=== PATIENT | male | born 1995 ===

== ENCOUNTER 2024-07-30 13:44 | Emergency (ER) | payer MEDICAID, SELFPAY ==
--- NOTE | ~2024-07-30 | XR_ITS ---
EXAMINATION: XR KNEE, LEFT CLINICAL INFORMATION: pain COMPARISON: None available. TECHNIQUE: AP, lateral, bilateral oblique views of the left knee. FINDINGS: There is no joint effusion. Joint spaces are preserved. There are no osteophytes. No fracture is seen. XR/XR knee LT 3V IMPRESSION: Unremarkable left knee Electronically signed by: Reg Carrillo MD 07/30/2024 02:41 PM EDT
[2024-07-30 13:54] VITALS: BP 119/60; PULSE 76; RESP 18; TEMP 36.3; O2SAT 97; BMI 32.1
--- NOTE | 2024-07-30 14:11 | ED_ITS ---
HPI - Extremity Injury (Lower) General Chief Complaint: Extremity Injury, Lower Stated Complaint: L Knee Pain No Injury Time Seen by Provider: 07/30/24 19:20 Source: patient, RN notes reviewed and old records reviewed Mode of arrival: ambulatory Limitations: no limitations History of Present Illness ED Provider: Phyllis ANDRADE Narrative: 29-year-old male presents for evaluation of left knee pain. Patient reports he woke up with left knee pain 5 or 6 days ago. He denies any injury. He reports that he does lift heavy but has not been in the gym for over a month. He reports that he was camping recently with his friend in the [place]. He denies any known tick bites or rashes. His pain is worse with walking. He reports that he feels a clicking sensation when he is walking. No calf pain or ankle or foot pain. Related Data Allergies Allergy/AdvReac Type Severity Reaction Status Date / Time No Known Allergies Allergy Verified 07/30/24 13:57 Review of Systems Constitutional: Constitutional: Denies body ache(s), Denies chills and Denies frequent falls Eyes: Eyes: Denies blurry vision ENT: Denies dizziness Cardiovascular: Cardiovascular: Denies chest pain and Denies dyspnea on exertion Respiratory: Respiratory: Denies cough and Denies dyspnea on exertion Gastrointestinal: Gastrointestinal: Denies abdominal pain Musculoskeletal: Musculoskeletal: Reports arthralgias, Denies joint swelling and Denies limited range of motion Integumentary/Breasts: Skin/Breast: Denies rash Neurologic: Denies dizziness and Denies frequent falls PMFSH Social History Social History Advance Directives: No Advance Directives Information Provided: Yes Physical Exam Vital Signs: Vital Signs: Last Vital Signs Temp 98.2 F 07/30/24 19:59 Pulse 70 07/30/24 19:59 Resp 18 07/30/24 19:59 BP 133/76 07/30/24 19:59 Pulse Ox 100 07/30/24 19:59 O2 Del Method Room Air 07/30/24 19:59 BMI result Body Mass Index 32.1 Const: General: healthy appearing, comfortable, no acute distress, alert and awake Nutritional Appearance: well nourished Orientation/consciousness: patient oriented x3 HEENT: Head: Yes normocephalic and Yes atraumatic Throat: Yes posterior oropharynx normal Eyes: Eyelids: Yes eyelids normal Conjunctivae: conjunctivae normal Sclerae: sclerae normal Corneas: corneas normal Pupils: Equal, round and reactive pupils present EOM: EOMs intact bilaterally Neck: Neck: Yes full ROM Resp: Effort & Inspection: normal respiratory effort, able to speak in complete sentences and not labored Skin: General skin exam: elasticity normal Neuro: General: patient oriented x3 Cranial nerves: Yes Equal, round and reactive pupils present and Yes Bilaterally intact EOM present Cognition (Neuro): normal cognition Extrem: Other: There was no obvious deformity to the left knee. No significant edema, no ecchymosis. The patient has global tenderness, but mostly around the medial aspect of the left knee. No laxity with anterior drawer testing. He has full range of motion with flexion-extension. There was no calf edema or calf tenderness. Course Course Course Narrative: This is an RME: Additional HPI, ROS, PE not included below will be deferred to primary provider. RME assessment and note performed by: Mariia Wild PA-C This is a 29-year-old male who presents emergency department with complaints of nontraumatic left knee pain. Patient with tenderness palpation diffusely, no obvious bony deformity or swelling. Vital signs within normal limits. Plan: X-rays, further ER evaluation needed Medical Decision Making Medical Decision Making MDM Narrative: [age] old male presents for evaluation of atraumatic left knee pain. There is no obvious deformity or significant injury, x-ray is negative for fracture, no joint effusion. There is no evidence to suggest DVT. I did add on a Lyme test as the patient reports he was recently camping but he did not notice any tick bite, does not have any fevers, chills and there has been no rash or erythema migrans. The patient be discharged with symptomatic care and will be referred to Orthopedics Differential Diagnosis Differential Diagnoses: The differential diagnosis associated with the presentation includes Independent Interpretation I performed an independent interpretation of an: Plain X-Ray Interpretation: agree with Radiology interpretation Radiology Impression Discussion of test interpretation with radiology: I have reviewed the radiologist's reading. Radiologist Impression: FINDINGS: There is no joint effusion. Joint spaces are preserved. There are no osteophytes. No fracture is seen. XR/XR knee LT 3V IMPRESSION: Unremarkable left knee Electronically signed by: Reg Carrillo MD 07/30/2024 02:41 PM EDT RP Discharge Plan Discharge Clinical Impression: Arthralgia of knee, left Patient Disposition: Home, Self-Care Instructions: Arthralgia (ED) Additional Instructions: the x-ray of your left knee did not show any concerning abnormalities. It is possible that you have a cartilage or ligamentous injury. We also sent a test for Lyme disease and we will call you if it is positive follow-up with your primary doctor, return for new or worsening symptoms. You may also follow up with Orthopedics at the number provided. You may benefit from an outpatient MRI if your symptoms are not improving Referrals: [facility] Orthopedic Surgeons [Provider Group] Referral Note: left knee pain, negative x-ray Interventions: ED Discharge Assessment Last Done: 07/30/24 19:59 Discharge Date/Time: 07/30/24 20:00 Print Language: Unable To Collect
[2024-07-30 19:26] VITALS: BP 133/76; PULSE 70; RESP 18; TEMP 36.8; O2SAT 100
[2024-07-30 19:59] VITALS: BP 133/76; PULSE 70; RESP 18; TEMP 36.8; O2SAT 100
[2024-08-01 09:08] LABS: Lyme Abs Screen <0.90 index
[2024-08-02 02:44] LABS: Lyme Disease DNA PCR NOT DETECTED (NOT DETECTED)
== END 2024-07-30 20:00 | disposition home or self-care (01) ==
PROVIDERS: Physician Assistant; Emergency Provider Emergency Medicine
DX: M25.562 Pain in left knee (principal)
CPT/HCPCS: 36415; 73562; 86617; 86618; 99283

== ENCOUNTER → 2024-07-30 14:08 | Outpatient (BNV) | payer MEDICAID, SELFPAY | PROVIDERS: Visit Provider Radiology Diagnostic Radiology | DX: M25.562 Pain in left knee (principal) | CPT/HCPCS: 73562 ==

== ENCOUNTER 2024-10-19 08:37 | Outpatient (REF) | payer MEDICAID, SELFPAY ==
--- OUTSIDE RECORDS SUMMARY | 2024-10-22 09:53 | XMS_ITS | Clinical Summary ---
Author Organization [facility] Address [address] [place] [address] Care Team Providers Care Heliotherapist Name Role Phone Aram Thomason MD Primary Care Provider Source Comments PLEASE NOTE, if this patient is a minor, it may be UNLAWFUL to discuss sensitive information that is contained in these records (such as FAMILY PLANNING, MENTAL HEALTH or SUBSTANCE ABUSE) with the minor patient's parent or other person without the patient's specific authorization.[facility] Allergies No known active allergies Medications naloxone (NARCAN) 4 mg/actuation nasal spray See Instructions , 4 mg Once may repeat every 2 to 3 minutes until patient responds, # 2 each, 0 Refills, Soft Stop, 12/30/19 13:00:00 EST, [facility]/pharmacy #[id number], Partial fill upon patient request, 178, cm, 12/30/19 11:25:00 EST, Height, 107, kg, ... 12/30/2019 Active naproxen (NAPROSYN) 500 mg tablet Take 1 Tablet by mouth 2 (two) times daily as needed (back pain) 60 Tablet 04/06/2024 Active atorvastatin (LIPITOR) 40 mg tablet Take 1 Tablet by mouth nightly at bedtime 90 Tablet 3 04/08/2024 Active amoxicillin-pot clavulanate (AUGMENTIN) 875-125 mg per tabletIndication s:Encounter for dental examination Take 1 Tablet by mouth 2 (two) times daily 20 Tablet 05/08/2024 Active ibuprofen 800 mg tabletIndication s:Encounter for dental examination Take 1 Tablet by mouth 3 (three) times daily as needed for pain 28 Tablet 05/08/2024 Active methylPREDNISolo ne (MEDROL DOSPAK) 4 mg tablet packIndications: Acute pain of left knee UAD. 1 Packet 08/07/2024 Active Active Problems Problem Noted Date Diagnosed Date Hypercholesterolemia 04/08/2024 Opioid use disorder, severe, dependence (CMS & H HS-HCC) 04/28/2022 Overview (04/06/2024): History of multiple fentanyl overdoses Urge incontinence 05/15/2021 Left leg pain 05/15/2021 Panic disorder 11/21/2020 Restless legs syndrome 10/09/2018 Overview (03/06/2021): Unlikely diagnosis. Attributed to anxiety by neurologist. Gabapentin & ropinirole ineffective in the past. Positive PPD 04/30/2018 Resolved Problems Problem Noted Date Diagnosed Date Resolved Date Class 1 obesity due to exces s calories without serious comorbidity with body mass index (BMI) of 30.0 to 30.9 in adult 06/29/2018 Exudative pharyngitis 01/15/20182020 Overview (01/15/2018): 01/12/18: Was diagnosed with exudative pharyngitis at [facility] Encounters Date Type Department Care Team Description 10/15/2024 Interim Notes [address] [phone] Danyell Hernandez 09/11/2024 / TELEPHONE [address] [phone] Daniel Saeed Community Health Worker 08/24/2024 Results Follow-Up [address] [phone] Basilio Chowdary FNP 08/08/2024 Interim Notes [address] [phone] Melanie Murry 08/07/2024 4:20 PM EDT Office Visit [address] [phone] Basilio Chowdary FNP 08/03/2024 Interim Notes [address] [phone] Danyell Hernandez 08/03/2024 Interim Notes [facility] [address] [place] [address] Danyell Hernandez from Last 3 Months Immunizations Immunization Administration Dates Next Due HEP B, PED/ADOL (NESHCQA-E-OOEP/RECOMBIVAX-PEDS) 03/12/2009,04/25/2008,03/28/2008 HPV, QUADRIVALENT 09/28/2012,06/21/2012,11/02/19 12 Hep A, Ped/adol, 2 Dose 01/27/2009,05/30/2008 INFLUENZA, SEASONAL, INJECTABLE 11/02/2011,10/21,01/27/2009 INFLUENZA, SEASONAL, INJECTA BLE, PRESERVATIVE FREE 03/06/2013 IPV (IPOL) 03/12/2009, 9,04/25/2008,03/28 Influenza Virus Vaccine (FLU MIST), Live Intranasal 12/13/2013 MENINGOCOCCAL MCV4P (MENACTRA) 12/13/2013 MENINGOCOCCAL VACCINE,CONJUG ATE (NON-INTERFACE) 04/25/2008 MMR (MMR II/Priorix) 04/25/2008,03/28/2008 MODERNA COVID-19 VACCINE BIV ALENT, BLUE CAP, 6M+ 04/07/2022 PPD 06/20/2013,05/31/2012 TDAP 03/06/2018,07/04/2015,03/18/2008 Td (adult),2 Lf tetanus toxo id (TDVAX), preservative free 10/21/2010,03/12/2009,05/30/2008,04/25 Varicella (Varivax), Live Vaccine 03/28/2008 Family History Medical History Relation Name Comments Diabetes Mother High Cholesterol Mother Hypertension Mother Relation Name Status Comments Father Mother Alive Social History Tobacco Use Types Packs/Day Years Used Date Smoking Tobacco: Never Cigarettes Passive Smoke Exposure: Never Smokeless Tobacco: Never Tobacco Cessation:Counseling Given: Not Answered Comments:vapors Alcohol Use Standard Drinks/Week Comments Not Currently 0 (1 standard drink = 0.6 oz pur e alcohol) sometimes Social Connections Answer Date Recorded Connectedness 0 11/21/2020 Financial Resource Strain Answer Date R ecorded Financial Resource Strain 0 2020 Stress Answer Date Recorded Stress 0 11/21/2020 Physical Activity Answer Date Recorded Physical Activity 0 09/30/2018 Food Insecurity Answer Date Recorded Food 0 11/21/2020 Transportation Needs Answer Date Record ed Transportation 0 11/21/2020 Housing Stability Answer Date Recorded Housing 0 11/21/2020 Safety and Environment Answer Date Johnathan rded Safety 0 09/30/2018 Utilities Answer Date Recorded Utilities 0 11/21/2020 Employment Answer Date Recorded Employment 0 09/30/2018 Sex and Gender Information Value Date Recorded Sex Assigned at Male 12/22/2017 5:43 PM PST Legal Sex Male 11:36 AM PDT Gender Identity Male 12/22/2017 5:43 PM PST Sexual Orientation Straight 06/29/2018 12 :35 PM PDT Occupation Industry Job Start Date Job End Date Unemployed Not on file Not on file Not on file Last Filed Vital Signs Vital Sign Reading Time Taken Comments Blood Pressure 125/83 08/07/2024 4:30 PM EDT Pulse 70 08/07/2024 4:30 PM EDT Temperature 36.5 C (97.7 F) 08/07/2024 4:30 PM EDT Respiratory Rate 19 08/07/2024 4:30 PM EDT Oxygen Saturation 100% 03/06/2021 4:07 PM EST Inhaled Oxygen Concentration - - Weight 99.1 kg (218 lb 6.4 oz) 08/07/2024 4:30 P M EDT Height 175.3 cm (5' 9 ) 08/07/2024 4:30 PM EDT Body Mass Index 32.25 08/07/2024 4:30 PM EDT Plan of Treatment Health Maintenance Due Date Last Done Comments Imm-Pneumococcal (1 of 2 - PCV) 2013 Alcohol and Drug Screen 02/08/2024 05/16/19, 03/06/2021, 11/21/2020, Additional history exists [id number] ( season) 2024 04/07/2022, 10/30/2020, 10/02/2020 Imm-Influenza (#1) 2024 12/13/2013, 0 03/06/2013, 11/02/2011, Additional history exists Depression Monitoring 12/12/2024 09/11/2024 , 03/06/2021, 11/21/2020, Additional history exists Dental BW 02/22/2025 02/21/2024 Dental Examination 02/22/2025 02/21/2024 Dental Perio Charting 02/22/2025 02/21/2024 Dental Prophy 03/30/2025 03/28/2024 Annual Wellness (Adult): Indicated (All Coverage) 04/06/2025 04/06/2024, 12/01/2015, 04/11/2014, Additional history exists Lipid Screening 04/06/2025 04/06/2024, 01/14/2021 Hypertension Screening (#1) 08/07/2025 Tobacco Screening 08/07/2025 08/07/2024 Anxiety Screening 09/11/2025 09/11/2024 Diabetes Screening 08/02/2027 08/01/2024, 0 04/06/2024, 04/06/2024, Additional history exists Imm-DTaP/Tdap/Td (7 - Td or Tdap) 03/06/2028 03/06/2018, 07/04/2015, 10/21/2010, Additional history exists Dental FMX/Pano 02/22/2029 02/21/2024 Imm-Hepatitis B Discontinued 03/12/2009, 04/07, 03/28/2008 HIV Screening Completed 01/14/2021, 0707/2020, 01/09/2020, Additional history exists Hepatitis C Screening Completed 01/14/2021 Procedures Procedure Name Priority Date/Time Associated Diagnosis Comments MR KNEE WO Routine 08/11/2024 3:00 AM EDT Acute pain of left knee HGA1C W/EAG Routine 04/06/2024 4:50 PM EST Routine general medical examination at a health care facility LIPIDS W RFLX TO DIRECT LDL Routine 04/06/2024 4:50 PM EST Routine general medical examination at a health care facility PROPHYLAXIS - ADULT Routine 03/28/2024 3 :00 PM EST Prophylactic measure COMP PERIODONTAL EVALUATION - NEW/EST PATIENT Routine 02/21/2024 3:00 PM EST Dental caries on smooth surface penetrating into dentin Dental caries on smooth surface penetrating into pulp INTRAORAL - COMP SERIES OF RADIOGRAPHIC IMAGES Routine 02/21/2024 3:00 PM EST Dental caries on smooth surface penetrating into dentin Dental caries on smooth surface penetrating into pulp PERIODIC ORAL EVALUATION ESTABLISHED PATIENT Routine 02/21/2024 3:00 PM EST Dental caries on smooth surface penetrating into dentin Dental caries on smooth surface penetrating into pulp HIV 1/2 AG & AB W/RFLX (4TH GEN) Routine 01/14/2021 4:34 PM EST Urine frequency HEPATITIS C AB W/RFLX HCV RNA, QT, RT PCR Routine 01/14/2021 4:34 PM EST Urine frequency from Last 3 Months or Most Recently Relevant to Health Maintenance Results * MR CHURCH WO (08/11/2024 3:00 AM EDT) 08/11/2024 3:00 AM EDT Basilio Chowdary CHILDREN'S SERVICE WORKER IMG MRI Final Res ult [facility] Office [address], [address] [place] [address], * HGA1C W/EAG (04/06/2024 4:50 PM EST) HEMOGLOBIN A1C 4.6 <5.7 % of total Hgb [facility] Comment: For the purpose of screening for the presence of diabetes: <5.7% Consistent with the absence of diabetes 5.7-6.4% Consistent with increased risk for diabetes (prediabetes) > or =6.5% Consistent with diabetes This assay result is consistent with a decreased risk of diabetes. Currently, no consensus exists regarding use of hemoglobin A1c for diagnosis of diabetes in children. According to [place] Diabetes Association (ADA) guidelines, hemoglobin A1c <7.0% represents optimal control in non- diabetic patients. Different metrics may apply to specific patient populations. Standards of Medical Care in Diabetes(ADA). EAG (MG/DL) 85 mg/dL [facility] EAG (MMOL/L) 4.7 mmol/L [facility] Blood Blood / Unknown 04/06/2024 4 :50 PM EST 04/06/2024 4:51 PM EST Narrative [facility] - 04/07/2024 2:55 PM EST FASTING:NO us Aram Thomason MD LAB - BLOOD DRAW Edited Resu lt - Final [facility] [address] [address], [facility] [address] [place] [address] * (ABNORMAL) LIPIDS W RFLX TO DIRECT LDL (04/06/2024 4:50 PM EST) CHOLESTEROL, TOTAL 332(H) <200 mg/dL [facility] HDL CHOLESTEROL 29(L) > OR = 40 mg/dL [facility] TRIGLYCERIDES 74 <150 mg/dL [facility] LDL-CHOLESTEROL 285(H) 99 mg/dL (calc) [facility] Comment: LDL-C levels > or = 190 mg/dL may indicate familial hypercholesterolemia (FH). Clinical assessment and measurement of blood lipid levels should be considered for all first degree relatives of patients with an FH diagnosis. LDL Cholesterol (LDL-C) levels > or = 300 mg/dL may indicate homozygous familial hypercholesterolemia (HoFH). Untreated, these extremely high LDL-C levels can result in premature CV events and mortality. Patients should be identified early and provided appropriate interventions to reduce the cumulative LDL-C burden from . For questions about testing for familial hypercholesterolemia, please call [facility] at 1.179.GENE.INFO. Ailin T, et al. J National Lipid Association Recommendations for Patient-Centered Management of Dyslipidemia: Part 1 Journal of Clinical Lipidology 2015;9(2), 129-169. Nadine Pinto et al. (2014). Homozygous familial hypercholesterolaemia: new insights and guidance for clinicians to improve detection and clinical management. Heart Journal, 35(32), 5256-9672. Reference range: <100 Desirable range <100 mg/dL for primary prevention; <70 mg/dL for patients with CHD or diabetic patients with > or = 2 CHD risk factors. LDL-C is now calculated using the Brittany calculation, which is a validated novel method providing better accuracy than the Friedewald equation in the estimation of LDL-C. Ilan BHAKTA et al. CARMEN. 2013;310(19): 2570-6836 (http://Hiptype/faq/CZH325) CHOL/HDLC RATIO 11.4(H) <5.0 (calc) [facility] NON-HDL CHOLESTEROL 303(H) <130 mg/dL (calc) [facility] Comment: Non-HDL level > or = 220 is very high and may indicate genetic familial hypercholesterolemia (FH). Clinical assessment and measurement of blood lipid levels should be considered for all first-degree relatives of patients with an FH diagnosis. For patients with diabetes plus 1 major ASCVD risk factor, treating to a non-HDL-C goal of <100 mg/dL (LDL-C of <70 mg/dL) is considered a therapeutic option. Blood Blood / Unknown 04/06/2024 4 :50 PM EST 04/06/2024 4:51 PM EST Narrative [facility]/ - 04/07/2024 2:55 PM EST FASTING:NO Aram Thomason MD LAB - BLOOD DRAW Final Resul t [facility]/ [address] [place] [id number], [facility] [address] [place] [phone] * HEPATITIS C AB W/RFLX HCV RNA, QT, RT PCR (01/14/2021 4:34 PM EST) HEPATITIS C ANTIBODY NON-REACT RAMBO NON-REACT RAMBO [facility] SIGNAL TO CUT-OFF 0.02 <1.00 [facility] Comment: HCV antibody was non-reactive. There is no laboratory evidence of HCV infection. In most cases, no further action is required. However, if recent HCV exposure is suspected, a test for HCV RNA (test code 62716) is suggested. For additional information please refer to http://Desecuritrex.Rift.io/faq/ZMR92c5 (This link is being provided for informational/ educational purposes only.) Blood Blood / Unknown 01/14/2021 4 :34 PM EST 01/14/2021 4:35 PM EST Basilio [facility] LAB - BLOOD DRAW Edited R esult - Final Performing Organization Address [facility] Co de Phone Number [facility] [address] [address], [employer] [facility] [address] [phone] * HIV 1/2 AG & AB W/RFLX (4TH GEN) (01/14/2021 4:34 PM EST) [facility] HIV AG/AB, 4TH GEN NON-REAC TIVE NON-REAC TIVE [facility] Comment: HIV-1 antigen and HIV-1/HIV-2 antibodies were not detected. There is no laboratory evidence of HIV infection. PLEASE NOTE: This information has been disclosed to you from records whose confidentiality may be protected by state law. If your state requires such protection, then the state law prohibits you from making any further disclosure of the information without the specific written consent of the person to whom it pertains, or as otherwise permitted by law. A general authorization for the release of medical or other information is NOT sufficient for this purpose. For additional information please refer to http://education.Tindie.Roovyn/faq/YKA275 (This link is being provided for informational/ educational purposes only.) The performance of this assay has not been clinically validated in patients less than 2 years old. Blood Blood / Unknown 01/14/2021 4 :34 PM EST 01/14/2021 4:35 PM EST Basilio Chowdary [facility] LAB - BLOOD DRAW Final Re sult Performing Organization Address City/[facility]/ZIP Co de Phone Number [facility] [address] [address], [employer] [employer] [address] [phone] from Last 3 Months or Most Recently Relevant to Health Maintenance Insurance [place] MEDICA[place] D[place] [facility] PARTNER[employer]IP [address] ACO Care Teams Heliotherapist Relationship Specialty Start Date End Date Aram Thomason MD [address] [place] [address] PCP - General Internal Medicine 11/10/20
--- OUTSIDE RECORDS SUMMARY | 2024-10-22 09:53 | XMS_ITS | Clinical Summary ---
Author Organization [facility] Address [address] [place], [place] [id number] Phone Care Team Providers Care Customer Care Professional Name Role Phone Aram Thomason MD Primary Care Provider Social History Tobacco Use Types Packs/Day Years Used Date Smoking Tobacco: Never Assessed Education Answer Date Recorded Are you interested in more education? Not on eli e 06/05/2022 Are you concerned about learning? Not on file 06/05/2022 No 06/05/2022 No 06/05/2022 Digital Access Answer Date Recorded No 07/03/2022 No 07/03/2022 No 07/03/2022 Reliable internet access at home? Not on file 07/03/2022 Device with a working camera? Not on file Sex and Gender Information Value Date Recorded Sex Assigned at Not on file Legal Sex Male 2:06 PM EDT Gender Identity Not on file Sexual Orientation Not on file Plan of Treatment Health Maintenance Due Date Last Done Comments DEPRESSION SCREENING 2006 SMOKING Hx and SMOKELESS TOBACCO SCREENING 2007 HIV ONE-TIME SCREENING (18-65 YEARS) 02/12/2012 INFLUENZA VACCINE (#1) 2024 4, 03/06/2013, 11/02/2011, Additional history exists COVID-19 VACCINE (2024- season) 2024 10/30/2020, 10/02/2020 Adult Td,Tdap Booster 03/06/2028 03/06/2018 , 07/04/2015, 10/21/2010, Additional history exists HEPATITIS A VACCINES Completed 01/27/2009, 05/31/19 09 MENINGOCOCCAL VACCINES (ACWY) Aged Out 12/13/2013 No longer eligible based on patient's age to complete this topic HEPATITIS C SCREENING Completed 01/14/2021 HIB VACCINES Aged Out No longer eligi ble based on patient's age to complete this topic MENINGOCOCCAL VACCINES (B) Aged Out N o longer eligible based on patient's age to complete this topic PNEUMOCOCCAL VACCINES (0-49 years) Aged Out No longer eligible based on patient's age to complete this topic Medical Devices Not on file Insurance [employer] PARTNERSHIP A[employer] PART[place] [address] [address] [place] [address] [employer]Y PARTNERSHIP A[employer]NER[employer] ACO Member Subscriber Plan / Payer (Ef fective 2017-Present) Name:Petr Triplett Relation to Subscriber:Self Name:Petr Triplett Payer ID:Not on file Type:Medicaid Address: [place] [id number] Care Teams Customer Care Professional Relationship Specialty Start Date End Date Aram Thomason MD [facility] [place] [address] PCP - General Internal Medicine 12/09/20 Additional Source Comments The information contained in this document represents components of the legal health record. It is not the complete legal health record.[facility]
--- OUTSIDE RECORDS SUMMARY | 2024-10-22 09:53 | XMS_ITS | Clinical Summary ---
Author Organization [employer] Address [address] [facility] 7 [place] [address] Care Team Providers Care Field Sales Trainer Name Role Phone Unavailable Primary Care Provider Unavailabl e Encounters Date Type Department Care Team Description 08/28/2024 Population Health Risk Score [facility] (C3) Department [address] [id number] Provider, Population Health Generic from Last 3 Months Social History Tobacco Use Types Packs/Day Years Used Date Smoking Tobacco: Never Assessed Sex and Gender Information Value Date Recorded Sex Assigned at Not on file Legal Sex Male 9:22 PM EDT Gender Identity Not on file Sexual Orientation Not on file Plan of Treatment Health Maintenance Due Date Last Done Comments Depression Screening 1994 Lipid Panel 1994 SDOH Screening 1994 Disability Screening 1994 Alcohol/Substance Use Screening 2006 Tobacco Screening 2006 Family Planning (PISQ) 2009 Hepatitis C Screening 02/12/2012 COVID-19 Vaccine ( season) 2024 04/07/2022 Influenza Vaccine (#1) 2024 4, 03/06/2013, 11/02/2011, Additional history exists DTaP/Tdap/Td Vaccines (7 - Td or Tdap) 03/06/2028 03/06/2018, 07/04/2015, 10/21/2010, Additional history exists Zoster Vaccines (1 of 2) 02/12/2044 RSV Patients and Patients Aged 60 years or older (1 - 1-dose 75+ series) 2069 Hepatitis A Vaccines Completed 01/27/2009, 05/31/19 09 Hepatitis B Vaccines Completed 03/12/2009, 04/25/2008, 03/28/2008 IPV Vaccines Completed 03/12/2009, 05/09, 04/25/2008, Additional history exists HPV Vaccines Completed 09/28/2012, 06/07, 11/02/2011 Meningococcal Vaccine Aged Out 12/13/2013 No son kenney eligible based on patient's age to complete this topic HIV Screening Completed 01/14/2021, 09/2020, 08/12/2020 HIB Vaccines Aged Out No longer eligi ble based on patient's age to complete this topic Meningococcal B Vaccine Aged Out No l onger eligible based on patient's age to complete this topic Pneumococcal Vaccine: Pediatrics (0 to 5 Years) and At-Risk Patients (6 to 49) Years Aged Out No longer eligible based on patient's age to complete this topic RSV under 20 months Aged Out No longe r eligible based on patient's age to complete this topic Rotavirus Vaccines Aged Out No longer eligible based on patient's age to complete this topic
--- OUTSIDE RECORDS SUMMARY | 2024-10-22 09:53 | XMS_ITS | Clinical Summary ---
Author Organization [facility] Address [address] [place] [address] Care Team Providers Care Finishing Frame Runner Name Role Phone System, Provider Not In Primary Care Provider Un available Allergies No known active allergies Immunizations Immunization Administration Dates Next Due Tdap 03/06/2018 Social History Tobacco Use Types Packs/Day Years Used Date Smoking Tobacco: Never Assessed Sex and Gender Information Value Date Recorded Sex Assigned at Not on file Legal Sex Male 4:13 PM EST Gender Identity Not on file Sexual Orientation Not on file Last Filed Vital Signs Vital Sign Reading Time Taken Comments Blood Pressure 142/78 03/06/2018 7:45 PM EST Pulse 76 03/06/2018 7:45 PM EST Temperature 36.8 C (98.2 F) 03/06/2018 7:45 PM EST Respiratory Rate 16 03/06/2018 7:45 PM EST Oxygen Saturation 99% 03/06/2018 7:45 PM EST Inhaled Oxygen Concentration - - Weight - - Height - - Body Mass Index - - Plan of Treatment Health Maintenance Due Date Last Done Comments Hepatitis C Virus Screening 1994 HIV Screening 2007 Hepatitis B Vaccines (1 of 3 - 19+ 3-dose series) 2013 HPV Vaccines (1 - 3-dose SCD M series) 2021 Influenza Vaccine 09/07/2024 COVID-19 Vaccine ( - 2023-2 5 season) 2024 DTaP/Tdap/Td Vaccines (2 - T d or Tdap) 03/06/2028 03/06/2018 Pneumococcal Vaccine: Pediat randa (0-5 Years) and At-Risk Patients (6 to 49 Years) Aged Out No longer eligible b ased on patient's age to complete this topic Insurance MEDICAID OUT OF STATE [facility] [place] [facility] [place] [facility] [place] (AUTO/LIABILITY) Care Teams Finishing Frame Runner Relationship Specialty Start Date End Date System, Provider Not In PCP - General 03/06/18
--- OUTSIDE RECORDS SUMMARY | 2024-10-22 09:53 | XMS_ITS | Clinical Summary ---
Author Organization [facility] Address [address] [place] [address] Phone Care Team Providers Care Technical Maintenance Specialist Name Role Phone Physician, No Pcp Primary Care Provider Unavaila ble Allergies No known active allergies Medications No known medications Encounters Date Type Department Care Team Description 08/02/2024 2:45 AM EDT - 08/02/2024 9:50 AM EDT Emergency [facility] Emergency [address] [place] [address] Acute pain of left knee (Primary Dx) Discharge Disposition: Home or Self Care from Last 3 Months Social History Tobacco Use Types Packs/Day Years Used Date Smoking Tobacco: Never Smokeless Tobacco: Never Tobacco Cessation:Counseling Given: Not Answered Alcohol Use Standard Drinks/Week Comments Never 0 (1 standard drink = 0.6 oz pur e alcohol) Sex and Gender Information Value Date Recorded Sex Assigned at Not on file Legal Sex Male 8:18 PM EST Gender Identity Not on file Sexual Orientation Not on file Obstetrics History Last Filed Vital Signs Vital Sign Reading Time Taken Comments Blood Pressure 134/72 08/02/2024 5:57 AM EDT Pulse 86 08/02/2024 5:57 AM EDT Temperature 36.7 C (98 F) 08/02/2024 5:57 AM EDT Respiratory Rate 18 08/02/2024 5:57 AM EDT Oxygen Saturation 96% 08/02/2024 5:57 AM EDT Inhaled Oxygen Concentration - - Weight 90.7 kg (200 lb) 08/02/2024 2:52 AM EDT Height 170.2 cm (5' 7 ) 08/02/2024 2:52 AM EDT Body Mass Index 31.32 08/02/2024 2:52 AM EDT Plan of Treatment Health Maintenance Due Date Last Done Comments HIV Screening 04/15/2023 Social Influencers of Health Screening 04/15/2023 Depression Screening 02/08/2024 COVID-19 Vaccine ( season) 2024 04/07/2022, 10/30/2020, 10/02/2020 Influenza Vaccine (#1) 2024 4, 03/06/2013, 11/02/2011, Additional history exists DTaP,Tdap,and Td Vaccines (7 - Td or Tdap) 03/06/2028 03/06/2018, 07/04/2015, 10/21/2010, Additional history exists Cholesterol Screening (Lipid Panel) 04/06/2029 04/06/2024, 01/14/2021 Varicella Vaccines Aged Out 03/28/2008 No longer eligible based on patient's age to complete this topic MMR Vaccines Completed 04/25/2008, 03/28/2008 Hepatitis A Vaccines Completed 01/27/2009, 05/31/19 Hepatitis B Vaccines Completed 03/12/2009, 04/25/2008, 03/28/2008 IPV Vaccines Completed 03/12/2009, 05/09, 04/25/2008, Additional history exists HPV Vaccines Completed 09/28/2012, 06/07, 11/02/2011 Meningococcal ACWY Vaccine Aged Out 12/13/2013 N o longer eligible based on patient's age to complete this topic Hepatitis C Screening Completed 01/14/2021 HIB Vaccines Aged Out No longer eligi ble based on patient's age to complete this topic Meningococcal B Vaccine Aged Out No l onger eligible based on patient's age to complete this topic Pneumococcal Vaccine: Pediatrics (0 to 5 Years) and At-Risk Patients (6 to 49 Years) Aged Out No longer eligible based on patient's age to complete this topic RSV Immunization Patients Under 20 months Aged Out No longer eligible based on patient's age to complete this topic Procedures Procedure Name Priority Date/Time Associated Diagnosis Comments ECG ANNOTATED 08/03/2024 XR KNEE 1-2 VIEWS LEFT STAT 3:34 AM EDT ECG 12-LEAD STAT 08/02/2024 3:03 AM EDT CBC WITH AUTO DIFFERENTIAL STAT 08/02/2024 2:56 AM EDT CBC AND DIFFERENTIAL STAT 08/02/2024 2:56 AM EDT COMPREHENSIVE METABOLIC PANEL STAT 08/02/2024 2:56 AM EDT LIPASE STAT 08/02/2024 2:56 AM EDT MAGNESIUM STAT 08/02/2024 2:56 AM EDT ETHANOL STAT 08/02/2024 2:56 AM EDT from Last 3 Months Results * ECG-Annotated (08/03/2024) us Provider Onbase ECG ORDERABLES Final Result * XR Knee 1-2 Views Left (08/02/2024 3:34 AM EDT) Anatomical Region Laterality Modality Lower Extremities, Knee Left Radiogra [facility] 08/02/2024 8:29 AM EDT Impressions 08/02/2024 8:31 AM EDT Normal two-view examination of the left knee. Code 71052 -------- FINAL REPORT -------- Dictated By: Daniel Diallo Dictated Date: 08/02/2024 08:29 ET Assigned Physician: Daniel Diallo Reviewed and Electronically Signed By: Daniel Diallo Signed Date: 08/02/2024 08:31 ET Workstation ID: [id number] Transcribed By: Self Edit Transcribed Date: 08/02/2024 08:29 ET Narrative 08/02/2024 8:31 AM EDT HISTORY: The patient is a 29-year-old male with left knee pain, nontraumatic. FINDINGS: AP and crosstable lateral radiographs of the left knee are obtained; the patient was unable to sufficiently cooperate to allow for oblique views. The study demonstrates no fracture, dislocation, arthritic change, or other bony abnormality. No joint effusion or other soft tissue abnormality is seen. Procedure Note Daniel Diallo MD - 08/02/2024 HISTORY: The patient is a 29-year-old male with left knee pain,nontraumatic. FINDINGS: AP and crosstable lateral radiographs of the left knee areobtained; the patient was unable to sufficiently cooperate to allow foroblique views. The study demonstrates no fracture, dislocation, arthriticchange, or other bony abnormality. No joint effusion or other soft tissueabnormality is seen. IMPRESSION: Normal two-view examination of the left knee. Code 11988 -------- FINAL REPORT -------- Dictated By: Daniel Diallo Dictated Date: 08/02/2024 08:29 ET Assigned Physician: Daniel Diallo Reviewed and Electronically Signed By: Daniel Diallo Signed Date: 08/02/2024 08:31 ET Workstation ID: [id number] Transcribed By: Self Edit Transcribed Date: 08/02/2024 08:29 ET us Sonam [facility] IMG XR PROCEDURES Final Result * ECG 12 lead (08/02/2024 3:03 AM EDT) Ventricular Rate ECG 84 BPM GEMUSE Atrial Rate 84 BPM GEMUSE P-R Interval 122 ms GEMUSE QRS Duration 94 ms GEMUSE Q-T Interval 356 ms GEMUSE QTc 420 ms GEMUSE P Wave [place] 66 degrees GEMUSE R [place] 64 degrees GEMUSE T [place] -8 degrees GEMUSE ECG Interpretation Normal sinus rhythm Nonspecific T wave abnormality Abnormal ECG No previous ECGs available Confirmed by Lily SALCIDO, EMERY ([id number]) on 08/02/2024 7:55:43 AM GEMUSE 08/02/2024 3:03 AM EDT 08/02/2024 7:55 AM EDT us Josseline Whitney MD ECG ORDERABLES Final Re sult GEMUSE * CBC auto differential (08/02/2024 2:56 AM EDT) WBC 9.1 4.8 - 10.8 [facility] LAB HEMETOLOGY METHOD 08/02/2024 4:28 AM [facility] RBC 4.70 4.50 - 5.50 M/mcL LAB HEMETOLOGY METHOD 08/02/2024 4:28 AM [facility] Hemoglobin 14.2 13.5 - 17.5 g/dL LAB HEMETOLOGY METHOD 08/02/2024 4:28 AM [facility] Hematocrit 42.4 42.0 - 54.0 % LAB HEMETOLOGY METHOD 08/02/2024 4:28 AM [facility] MCV 90.6 79.0 - 98.0 FL LAB HEMETOLOGY METHOD 08/02/2024 4:28 AM [facility] MCH 30.3 27.0 - 32.0 pcg LAB HEMETOLOGY METHOD 08/02/2024 4:28 AM [facility] MCHC 33.5 32.0 - 37.0 g/dL LAB HEMETOLOGY METHOD 08/02/2024 4:28 AM [facility] RDW 13.2 11.0 - 15.0 % LAB HEMETOLOGY METHOD 08/02/2024 4:28 AM [facility] Platelets 282 130 - 400 K/mcL LAB HEMETOLOGY METHOD 08/02/2024 4:28 AM [facility] MPV 9.7 7.0 - 11.0 FL LAB HEMETOLOGY METHOD 08/02/2024 4:28 AM [facility] NRBC 0.0 <1.0 % LAB HEMETOLOGY METHOD 08/02/2024 4:28 AM [facility] NRBC Absolute 0.00 <0.10 K/mcL LAB HEMETOLOGY METHOD 08/02/2024 4:28 AM [facility] Neutrophils Relative 64.1 % LAB HEMETOLOGY METHOD 08/02/2024 4:28 AM [facility] Lymphocytes Relative 25.2 % LAB HEMETOLOGY METHOD 08/02/2024 4:28 AM [facility] Monocytes Relative 9.7 % LAB HEMETOLOGY METHOD 08/02/2024 4:28 AM [facility] Eosinophils Relative 0.8 % LAB HEMETOLOGY METHOD 08/02/2024 4:28 AM [facility] Basophils Relative 0.1 % LAB HEMETOLOGY METHOD 08/02/2024 4:28 AM [facility] Immature Granulocytes Relative 0.1 % LAB HEMETOLOGY METHOD 08/02/2024 4:28 AM [facility] Neutrophils Absolute 5.86 1.50 - 7.00 K/mcL LAB HEMETOLOGY METHOD 08/02/2024 4:28 AM [facility] Lymphocytes Absolute 2.30 1.00 - 5.00 K/mcL LAB HEMETOLOGY METHOD 08/02/2024 4:28 AM [facility] Monocytes Absolute 0.89 0.20 - 1.00 K/mcL LAB HEMETOLOGY METHOD 08/02/2024 4:28 AM [facility] Eosinophils Absolute 0.07 0.00 - 0.50 K/mcL LAB HEMETOLOGY METHOD 08/02/2024 4:28 AM [facility] Basophils Absolute 0.01 0.00 - 0.20 K/mcL LAB HEMETOLOGY METHOD 08/02/2024 4:28 AM [facility] Immature Granulocytes Absolute 0.01 0.00 - 0.03 K/mcL LAB HEMETOLOGY METHOD 08/02/2024 4:28 AM [facility] Blood Venous blood specimen / Unknown Venipuncture / Unknown 08/02/2024 2:56 AM EDT 08/02/2024 4:22 AM EDT Josseline Whitney MD LAB BLOOD ORDERABLES Fin al Result Performing Organization Address [facility]/ZIP Co de Phone Number [facility] [address] [place] [address], [place] [phone] * Magnesium (08/02/2024 2:56 AM EDT) Magnesium 2.0 1.9 - 2.6 mg/dL LAB CHEMISTRY METHOD 08/02/2024 4:50 AM EDT [facility] Blood Venous blood specimen / Unknown Venipuncture / Unknown 08/02/2024 2:56 AM EDT 08/02/2024 4:22 AM EDT Josseline Whitney MD LAB BLOOD ORDERABLES Fin al Result Performing Organization Address [facility] Co de Phone Number [facility] [address] [place] [address], [place] [phone] * Lipase (08/02/2024 2:56 AM EDT) [facility] Lipase 23 13 - 75 unit/L LAB CHEMISTRY METHOD 08/02/2024 4:50 AM EDT [facility] Blood Venous blood specimen / Unknown Venipuncture / Unknown 08/02/2024 2:56 AM EDT 08/02/2024 4:22 AM EDT Josseline Whitney MD LAB BLOOD ORDERABLES Fin al Result Performing Organization Address City/[facility]/ZIP Co de Phone Number [facility] [address] [place] [address], [place] [phone] * Ethanol (08/02/2024 2:56 AM EDT) Ethanol Level <3 0 - 10 mg/dL LAB CHEMISTRY METHOD 08/02/2024 4:50 AM [facility] Blood Venous blood specimen / Unknown Venipuncture / Unknown 08/02/2024 2:56 AM EDT 08/02/2024 4:22 AM EDT Josseline Whitney MD LAB BLOOD ORDERABLES Fin al Result [facility] [address] [place] [address], * Comprehensive metabolic panel (08/02/2024 2:56 AM EDT) Sodium 134 133 - 145 mmol/L LAB CHEMISTRY METHOD 08/02/2024 4:50 AM [facility] Potassium 3.8 3.5 - 5.5 mmol/L LAB CHEMISTRY METHOD 08/02/2024 4:50 AM [facility] Chloride 98 96 - 110 mmol/L LAB CHEMISTRY METHOD 08/02/2024 4:50 AM [facility] CO2 27 21 - 32 mmol/L LAB CHEMISTRY METHOD 08/02/2024 4:50 AM [facility] Anion Gap 9 3 - 11 LAB CHEMISTRY METHOD 08/02/2024 4:50 AM [facility] Glucose 85 70 - 100 mg/dL LAB CHEMISTRY METHOD 08/02/2024 4:50 AM [facility] BUN 21 5 - 25 mg/dL LAB CHEMISTRY METHOD 08/02/2024 4:50 AM [facility] Creatinine 1.29 0.70 - 1.30 mg/dL LAB CHEMISTRY METHOD 08/02/2024 4:50 AM [facility] eGFR 76 >=60 mL/min/1. 73m2 LAB CHEMISTRY METHOD 08/02/2024 4:50 AM [facility] Comment:Calculation based on the Chronic Kidney Disease Epidemiology Collaboration (CKD-EPI) equation refit without adjustment for race. BUN/Creatinine Ratio 16.3 LAB CHEMISTRY METHOD 08/02/2024 4:50 AM [facility] Calcium 9.4 8.5 - 10.5 mg/dL LAB CHEMISTRY METHOD 08/02/2024 4:50 AM [facility] AST (SGOT) 39 10 - 42 unit/L LAB CHEMISTRY METHOD 08/02/2024 4:50 AM [facility] ALT (SGPT) 37 10 - 60 unit/L LAB CHEMISTRY METHOD 08/02/2024 4:50 AM [facility] Alkaline Phosphatase 75 42 - 121 unit/L LAB CHEMISTRY METHOD 08/02/2024 4:50 AM [facility] Total Protein 7.5 6.0 - 8.0 g/dL LAB CHEMISTRY METHOD 08/02/2024 4:50 AM [facility] Albumin 4.4 3.2 - 5.0 g/dL LAB CHEMISTRY METHOD 08/02/2024 4:50 AM [facility] Total Bilirubin 1.2 0.0 - 1.4 mg/dL LAB CHEMISTRY METHOD 08/02/2024 4:50 AM [facility] Blood Venous blood specimen / Unknown Venipuncture / Unknown 08/02/2024 2:56 AM EDT 08/02/2024 4:22 AM EDT us Josseline Whitney MD LAB BLOOD ORDERABLES Fin al Result [facility] [address] [place] [address], [place] [phone] from Last 3 Months Insurance MEDICAID - [place] Care Teams Technical Maintenance Specialist Relationship Specialty Start Date End Date Physician, No Pcp PCP - General 07/09/24
== END 2024-10-19 08:38 | disposition home or self-care (01) ==
LOC: HO.HOSX 08:37
PROVIDERS: Visit Provider Physician Assistant
DX: Z13.89 Encounter for screening for other disorder (principal)